=== PATIENT | male | born 1990 | race Hispanic/Latino ===

== ENCOUNTER 2017-01-26 12:42 | Emergency (ER) | payer OTHER ==
[~2017-01-26] VITALS: Ht 170.2 cm; Wt 88.6 kg
--- NOTE | 2017-01-26 12:47 | ED.REPORT ---
HPI-Overdose/Alcohol Toxicity Date of Service Jan 26, 2017 ED Provider: Dr. Allen Pt is a 26 year old male presenting to the ED via EMS after an accidental drug overdose. He states that he took 1 painkiller pill that he bought from someone on the street that he thought was OxyContin or Percocet for severe lower back pain onset 3 days ago. He is unable to sleep or move due to pain. Denies any suicidal attempt, trauma, IV drug use or fever. Pt was given IV Narcan by medics en route. Nursing Notes Stated Complaint: ACCIDENTAL OVERDOSE Chief Complaint: Accidental overdose Nursing Notes Reviewed: Yes ([facility]ME[facility], Chargeback not reconciled) Allergies: Coded Allergies: No Known Allergies (Unverified , 01/26/17) Scheduled PRN Cyclobenzaprine (Cyclobenzaprine) 5 Mg Tablet 5-10 MG PO TID PRN PRN Spasm General Time Seen by Provider: 12:50 Chief Complaint Drug overdose Modifying Factors: Accidental Hx Obtained From: Patient, EMS Arrived By: Ambulance Onset Occurred: Just prior to arrival Symptom Duration: Since onset Progression Since Onset: Constant Location: : Back lower Quality: Painful Severity: Current: Severe Severity: Maximum: Severe Recent Healthcare: No recent doctor visit, No recent hospitalization Similar Sx Previous: No Past Medical History Past Medical History Chronic back pain Past Surgical History denies Smoking History Unknown if Ever Smoker Social History Drug Use: Denies drug use (Denies IV drugs) Ambulatory Status Independent Review of Systems Constitutional: Denies: Fever Musculoskeletal: Reports: Back pain Psychiatric: Denies: Depression, Suicidal ideation Complete sys rev & neg: except as marked. Physical Exam Initial Vital Signs Vital Signs (First) Date Time Temp Pulse Resp B/P Pulse Ox O2 Delivery O2 Flow Rate FiO2 01/26/17 13:08 36.7 90 13 173/89 96 Room Air 01/26/17 13:38 1.5 Initial VS: Reviewed, Vital signs normal Head / Eyes: Atraumatic, Normocephalic, PERRL ENT: Mucous membranes moist, Conjunctiva normal, No scleral icterus Extremities: Vascular intact, Neuro intact, No swelling, No tenderness Skin: Warm, Dry, No cyanosis General/Constitutional: Awake, Alert, Well appearing Pt is still a little drowsy, but is answering questions appropriately. No track cody. Respiratory / Chest: Atraumatic, Breath sounds NL, Breath sounds = bilat, No respiratory distress No longer showing any respiratory depressions. Cardiovascular: Heart rate NL, Regular rhythm, Heart sounds NL, Cap refill not delayed, Peripheral circulation NL Abdomen: Atraumatic, Soft, Non-tender, No guarding, No rebound Neurologic: Oriented X3, Speech NL, No motor deficits, No sensory deficits No focal deficits Psychiatric: Affect NL, Mood NL, Not suicidal, Cognitive function NL, Judgment/ insight NL, Thought content NL Interpretation & Diagnostics Lab Results Interpretation Test 01/26/17 14:42 Hold Purple Top Tube Received (Received) Hold Blue Top Tube Received (Received) Hold Volga Top Tube Received (Received) Re-Eval/Medical Decision Med Decision/Clinical Course This is a 26-year-old male resents following an accidental overdose of opiates requiring intranasal Narcan by BLS, and IV Narcan by ALS. Patient took some sort of oxy-something or other. (I received contradictory reports as to the name of the agent as oxycodone, OxyContin, since his street drugs about often we do not really know what was in it does allegedly a pain medicine for his back pain which has been and off for the last 3 days. The patient does not inject drugs, says no fever, no traumatic mechanism.) He reports that the overdose was entirely accidental. He is slightly drowsy on initial arrival, but did well was monitored for several hours and had no recurrence of respiratory depression or intoxication. He was counseled on avoiding opiates. A narcan prepack is being provided. Referral to [facility] and PCP are being provided. He is frustrated management of back pain, but I have indicated that I certainly do not think opiates are indicated in this situation, and I recommended ibuprofen and have gone ahead and provided a few sputum and cyclobenzaprine. Is discharged with family in good condition. Source of Hx: Old records Re-Evaluation/Progress : Time of Eval: 14:46 Patient Status: Condition improved Re-Evaluation/Progress Note: Pt feeling much better. Discussed plan for discharge. Pt understands and agrees with plan. Differential Diagnosis: Positive: Overdose, accidental, Overdose, narcotic, Substance abuse disorder, Negative: Alcohol abuse, Anxiety, Bipolar disorder, Conversion disorder, Depression, Intoxication, alcohol, Suicidal attempt, Suicidal gesture Counseled Regarding: Diagnosis, Lab results, Need for follow-up, When/why to return to ED Discharge & Departure Impression: Primary Impression: Opiate overdose Encounter type: initial encounter Injury intent: accidental or unintentional Qualified Code: T40.601A - Poisoning by unspecified narcotics, accidental (unintentional), initial encounter Additional Impression: Back pain Back pain location: low back pain Chronicity: unspecified Back pain laterality: unspecified Sciatica presence: without sciatica Qualified Code: M54.5 - Low back pain Disposition: Home Discharge Condition All VS Reviewed: Yes Condition: Improved Additional Instructions: 1. You had stoped breathing and required administration of Narcan following the accidental overdose. 2. Stay away from opiates and street drugs. 3. We have provided a dose of narcan to take home that anyone could adminster if another overdose did occur. 4. You can take ibuprofen 400-800mg three times a day for pain. 5. You can take the muscle relaxant cyclobenzaprine 10mg up to three times a day (note: causes drowsiness). 6. Consider following up with [facility]. 7. If you need a primary care provider, follow up with Leigh Ann Tripathi. Referrals: Juan Antonio Aleman MD (Family) Brenda Tripathi PA-C Attestation Portions of this note were transcribed by Carlie Lawson. I, Dr. Allen personally performed the history, physical exam and medical decision-making; I reviewed and confirmed the accuracy of the information in the transcribed note. Signed by: Adrianna Elias, 01/26/2017 at 1885. copies to: Brenda Tripathi PA-C; Juan Antonio Aleman MD, Matthew F MD Jan 26, 2017 12:47 CARLIE LAWSON Jan 26, 2017 12:59
[2017-01-26 13:08] VITALS: BP 173/89; PULSE 90; RESP 13; O2SAT 96
[2017-01-26] MEDS ORDERED: _Naloxone 2 mg/2 mL 2 Syringe Kit (NASAL USE) NASAL PRN (13:20)
[2017-01-26 13:38] VITALS: BP 143/89; PULSE 97; RESP 16; O2SAT 98
[2017-01-26] MEDS ORDERED: CYCL5TAB PO (14:56)
== END 2017-01-26 15:30 | disposition home or self-care (01) ==
LOC: EDBD 12:42 → SED 12:42
DX: T40.601A Poisoning by unspecified narcotics, accidental (unintentional), initial encounter (principal); Y93.89 Activity, other specified; Y92.89 Other specified places as the place of occurrence of the external cause; Y99.8 Other external cause status; M54.5 Low back pain